=== PATIENT | female | born 1950 | race Caucasian/White ===

== ENCOUNTER 2023-12-30 15:05 | Outpatient (CLI) | payer MEDICARE ==
[2023-12-30 16:09] LABS: #Basophils 0.06 10x3/uL (0.0-0.2); #Eosinphils 0.16 10x3/uL (0.0-0.5); #Monocytes 0.69 10x3/uL (0.0-1.1); #Neutrophils 6.22 10x3/uL (1.5-8.4); %Basophils 0.6 % (0.0-2.0); %Eosinophils 1.5 % (0.0-6.0); %Lymphocytes 33.6 % (18.0-47.0); %Monocytes 6.4 % (0.0-10.0); %Neutrophils 57.6 % (40.0-75.0); Hematocrit 41.8 % (34.9-44.5); Hemoglobin 14.1 g/dL (12.0-15.5); Mean Corpuscular HGB CONC 33.7 g/dL (32.0-36.0); Mean Corpuscular Hemoglobin 29.4 pg (27.0-33.0); Mean Corpuscular Volume 87.1 fL (81.6-98.3); Mean Platelet Volume 9.5 fL (7.4-10.4); Platelet Count 320 10x3/uL (150-450); RBC Distribution Width 12.3 % (11.5-14.5); White Blood Cell (WBC) Count 10.8 10x3/uL (3.5-10.5)
== END 2023-12-30 15:06 | disposition home or self-care (01) ==
LOC: LABBT 15:05
PROVIDERS: ATTEND Orthopaedic Surgery Hand Surgery
DX: Z01.818 Encounter for other preprocedural examination (principal); G56.01 Carpal tunnel syndrome, right upper limb
CPT/HCPCS: 85025; 93005; 93010

== ENCOUNTER 2024-01-04 06:31 | Day surgery (SDC) | payer MEDICARE, OTHER ==
[2023-12-30 16:31] VITALS: BMI 29.2
[2024-01-04] MEDS ORDERED: PROPOFOL 20 ML ONE ×2 (10:42→11:30)
[2024-01-04] MEDS ORDERED: fentaNYL PF 100 MCG/2 ML SYRINGE ONE (10:42)
[2024-01-04] MEDS ORDERED: Bupivacaine PF 0.5% 30 ML VIAL ONE (11:25)
[2024-01-04] MEDS ORDERED: Bacitracin Zinc Ointment 30 gm TUBE ONE (11:25)
[2024-01-04] MEDS ORDERED: Rocuronium Bromide 10 MG/ML (10ML VIAL) ONE (11:31)
[2024-01-04] MEDS ORDERED: CEFAZOLIN 2 GM VIAL ONE (11:39)
[2024-01-04] MEDS ORDERED: Sodium Chloride 0.9% 100 ML ONE (11:39)
[2024-01-04] MEDS ORDERED: Ondansetron PF 4 MG/2 ML Vial ONE (12:03)
[2024-01-04] MEDS ORDERED: Dexamethasone 4 mg/ml Vial ONE (12:03)
== END 2024-01-04 14:25 | disposition home or self-care (01) ==
LOC: SDC 06:31
PROVIDERS: ATTEND Orthopaedic Surgery Hand Surgery
PROC: 01N50ZZ Release Median Nerve, Open Approach (ICD-10-PCS; principal; 2024-01-04)
DX: G56.01 Carpal tunnel syndrome, right upper limb (principal); E11.9 Type 2 diabetes mellitus without complications; I10 Essential (primary) hypertension; M67.40 Ganglion, unspecified site; M48.02 Spinal stenosis, cervical region; G58.7 Mononeuritis multiplex; Z79.899 Other long term (current) drug therapy; Z90.710 Acquired absence of both cervix and uterus; Z88.2 Allergy status to sulfonamides
CPT/HCPCS: 64721; 82962; J0665; J1100; J2405; J2704; J3490; 36416; A6223